=== PATIENT | female | born 1945 | race Hispanic/Latino ===

== ENCOUNTER 2022-08-08 23:00 | Inpatient (IN) | payer MEDICARE ==
[2022-08-08 23:42] LABS: #Basophils 0.1 thou/uL (0.0-0.2); #Eosinphils 0.2 thou/uL (0.0-0.7); #Monocytes 1.1 thou/uL (0.11-0.59); #Neutrophils 7.4 thou/uL (1.40-6.50); %Basophils 0.5 % (0.0-1.0); %Lymphocytes 25.6 % (21.0-51.0); %Neutrophils 62.8 % (42.0-75.0); Hemoglobin 12.7 g/dL (12.0-16.0); Mean Corpuscular HGB CONC 31.9 g/dL (32.0-36.0); Mean Corpuscular Hemoglobin 29.5 pg (27.0-31.0); Mean Corpuscular Volume 92.6 fl (78.0-98.0); Mean Platelet Volume 7.2 fL (7.4-10.4); Platelet Count 365 10x3/uL (130-400); RBC Distribution Width 15.6 % (11.5-14.5); Red Blood Cell (RBC) Count 4.29 mill/uL (4.20-5.40); White Blood Cell (WBC) Count 11.8 10x3/uL (4.8-10.8)
[2022-08-09] MEDS ORDERED: Ipratropium Bromide 2.5 ml Neb ONE (00:33)
[2022-08-09] MEDS ORDERED: Piperacillin/Tazobactam 3.375 GM VIAL ONE ×2 (02:02→07:23)
[2022-08-09] MEDS ORDERED: Magnesium 2 GM/50 ML BAG (IN WATER) ONE (02:02)
[2022-08-09 02:11] LABS: Bacteria/HPF 4+ HPF (None Seen); Bilirubin Negative (Negative); Blood, Urine 3+ (Negative); Clarity Extra Turbid (Clear); Glucose, Urine (Dipstick) Normal (Negative); Ketone, Urine Negative (Negative); Leukocyte 500 Leu/uL (Negative); Nitrite Negative (Negative); Protein, Urine (Dipstick) 20 mg/dL (Neg-Trace); RBC/HPF 21-50 HPF (0-3); Specific Gravity, Urine 1.008 (1.002-1.036); Squamous Epithelial 0-3 HPF (0-3); WBC/HPF Greater than 50 HPF (0-3); pH, Urine 6.5 (5.0-9.0)
[2022-08-09] MEDS ORDERED: Dextrose 5% in Water 1,000 ML IV PRN (03:08)
[2022-08-09] MEDS ORDERED: Dextrose 50% Abboject 50 ML SYRINGE SLOW IVP PRN (03:08)
[2022-08-09 03:20] LABS: CKMB 1.8 ng/mL (0-6.6)
[2022-08-09] MEDS ORDERED: Ondansetron ODT 4 MG TAB PER TUBE PRN (03:24)
[2022-08-09] MEDS ORDERED: Senokot S 8.6-50 MG TAB PER TUBE PRN (03:24)
[2022-08-09] MEDS ORDERED: Ipratropium/Albuterol 3 ML NEB NEB PRN (03:26)
[2022-08-09] MEDS ORDERED: Scopolamine 1.5 mg/72 hour Patch TD SCH (03:30)
[2022-08-09] MEDS ORDERED: Piperacillin/Tazobactam 3.375 GM in Sodium Chloride 0.9% 100 ML IVPB SCH (06:00)
[2022-08-09] MEDS ORDERED: Sodium Chloride 0.9% 100 ML ONE ×2 (07:23→08:47)
[2022-08-09] MEDS ORDERED: Cefepime 1 GM VIAL ONE (08:47)
[2022-08-09 08:50] LABS: SARS-CoV-2 NAA Rapid Test Not Detected (NotDetected)
[2022-08-09] MEDS ORDERED: Cefepime 1 GM in Sodium Chloride 0.9% 100 ML IVPB SCH (09:00)
[2022-08-09 09:22] LABS: ALT (SGPT) 12 U/L (8-55); AST (SGOT) 24 U/L (5-34); Albumin 2.9 g/dL (3.4-4.8); Alkaline Phosphatase 90 U/L (40-110); Anion Gap 12 mmol/L (10-20); BUN (Urea Nitrogen) 17 mg/dL (9.8-20.1); Bilirubin, Total 0.4 mg/dL (0.2-1.2); Calc. Creatinine Clearance 0 mL/min (70-130); Calcium 8.5 mg/dL (7.8-10.44); Carbon Dioxide 30 mmol/L (23-31); Chloride 92 mmol/L (98-107); Estimated GFR 91; Globulin 4.7 g/dL (2.4-3.5); Glucose 90 mg/dL (83-110); Potassium 4.5 mmol/L (3.5-5.1); Protein, Total 7.6 g/dL (5.8-8.1); Sodium 129 mmol/L (136-145)
[2022-08-09] MEDS: Losartan 25 MG TAB PER TUBE SCH (09:22)
[2022-08-09] MEDS: Hydrochlorothiazide 25 MG TAB PER TUBE SCH (09:52)
[2022-08-09] MEDS: Lansoprazole 15 MG/5 ML (BATCHED)UDCUP PER TUBE SCH (09:52)
[2022-08-09] MEDS: Ampicillin/Sulbactam 3 GM in Sodium Chloride 0.9% 100 ML IVPB SCH ×2 (15:34→22:40)
[2022-08-09] MEDS: Insulin Glargine 30 UNITS/0.3 ML VIAL SC SCH ×2 (22:17→22:18)
[2022-08-10] MEDS: Ampicillin/Sulbactam 3 GM in Sodium Chloride 0.9% 100 ML IVPB SCH ×2 (04:49→20:39)
[2022-08-10 05:09] LABS: #Eosinphils 0.2 thou/uL (0.0-0.7); #Lymphocytes 1.8 thou/uL (1.20-3.40); #Neutrophils 6.7 thou/uL (1.40-6.50); %Basophils 0.2 % (0.0-1.0); %Eosinophils 1.9 % (0.0-10.0); %Neutrophils 68.9 % (42.0-75.0); Hemoglobin 11.3 g/dL (12.0-16.0); Mean Corpuscular HGB CONC 30.9 g/dL (32.0-36.0); Mean Corpuscular Volume 93.8 fl (78.0-98.0); Platelet Count 393 10x3/uL (130-400); RBC Distribution Width 15.4 % (11.5-14.5); White Blood Cell (WBC) Count 9.7 10x3/uL (4.8-10.8)
[2022-08-10 05:22] LABS: Anion Gap 12 mmol/L (10-20); BUN (Urea Nitrogen) 13 mg/dL (9.8-20.1); Calc. Creatinine Clearance 79 mL/min (70-130); Calcium 8.4 mg/dL (7.8-10.44); Carbon Dioxide 32 mmol/L (23-31); Chloride 90 mmol/L (98-107); Estimated GFR 88; Glucose 267 mg/dL (83-110); Potassium 4.4 mmol/L (3.5-5.1); Sodium 130 mmol/L (136-145)
[2022-08-10] MEDS ORDERED: Ventilator Sedation Protocol 1 EACH FS PRN (08:53)
[2022-08-10] MEDS ORDERED: Electrolyte Replacement Protocol 1 EACH FS PRN (08:53)
[2022-08-10] MEDS ORDERED: Propofol 1,000 MG/100 ML VIAL IV ONE (08:53)
[2022-08-10] MEDS ORDERED: Fentanyl BOLUS 250 ML IVPB PRN (09:00)
[2022-08-10] MEDS ORDERED: Propofol 1,000 MG/100 ML VIAL IV PRN (09:00)
[2022-08-10] MEDS ORDERED: Lorazepam 2 MG/ML VIAL SLOW IVP PRN (09:00)
[2022-08-10] MEDS ORDERED: Morphine 4 MG/ML VIAL SLOW IVP PRN (09:00)
[2022-08-10] MEDS ORDERED: DISCONTINUE PREVIOUS NARCOTIC PAIN MEDICATIONS AND BENZODIAZEPINES FS SCH (09:00)
[2022-08-10] MEDS ORDERED: Propofol BOLUS 1,000 MG/100 ML VIAL IV PRN (09:00)
[2022-08-10] MEDS ORDERED: Fentanyl CADD 100 ML IV SCH (09:00)
[2022-08-10] MEDS ORDERED: Fentanyl CADD 100 ML ONE (10:16)
[2022-08-10] MEDS ORDERED: Meropenem 1 GM in Sodium Chloride 0.9% 100 ML IVPB SCH (13:00)
[2022-08-10] MEDS: Losartan 25 MG TAB PER TUBE SCH (13:07)
[2022-08-10] MEDS: Hydrochlorothiazide 25 MG TAB PER TUBE SCH (13:07)
[2022-08-10] MEDS: HumaLOG 300 UNITS/3 ML VIAL SC PRN (14:13)
[2022-08-10] MEDS: Ipratropium/Albuterol 3 ML NEB NEB SCH ×2 (14:33→18:21)
[2022-08-10 15:45] LABS: Actual Bicarbonate (HCO3a) 33.2 mEq/L (22-28); Base Excess (BEa) 7.7 mEq/L (-2.0 to +3.0); Calcium, Ionized (arterial) 1.11 mmol/L (1.12-1.30); Carboxyhemoglobin (COHb) 0.2 gm% (0.0-3.0); Hemoglobin (Hb) 11.4 g/dL (12.0-16.0); O2 Tension (PaO2), arterial 61.8 mmHg (> 70.0); Potassium - ABG Lab 4.02 mmol/L (3.70-5.30); pH, Arterial 7.43 (7.35-7.45)
[2022-08-10 15:46] LABS: Puncture Site RRA
[2022-08-10] MEDS: Lansoprazole 15 MG/5 ML (BATCHED)UDCUP PER TUBE SCH (20:39)
[2022-08-10] MEDS: Insulin Glargine 30 UNITS/0.3 ML VIAL SC SCH (20:42)
[2022-08-10] MEDS: Meropenem 1 GM in Sodium Chloride 0.9% 100 ML IVPB SCH (20:43)
[2022-08-10] MEDS ORDERED: Sodium Chloride 0.45% 1,000 ML IV SCH (22:45)
[2022-08-11] MEDS: Ipratropium/Albuterol 3 ML NEB NEB SCH ×4 (00:02→18:20)
[2022-08-11 04:11] LABS: #Eosinphils 0.2 thou/uL (0.0-0.7); #Monocytes 0.7 thou/uL (0.11-0.59); #Neutrophils 5.9 thou/uL (1.40-6.50); %Eosinophils 2.1 % (0.0-10.0); %Lymphocytes 22.8 % (21.0-51.0); %Monocytes 8.2 % (0.0-10.0); Hemoglobin 10.2 g/dL (12.0-16.0); Mean Corpuscular HGB CONC 31.5 g/dL (32.0-36.0); Mean Corpuscular Hemoglobin 29.5 pg (27.0-31.0); Mean Corpuscular Volume 93.5 fl (78.0-98.0); Mean Platelet Volume 6.9 fL (7.4-10.4); Platelet Count 364 10x3/uL (130-400); RBC Distribution Width 15.4 % (11.5-14.5); Red Blood Cell (RBC) Count 3.45 mill/uL (4.20-5.40); White Blood Cell (WBC) Count 8.9 10x3/uL (4.8-10.8)
[2022-08-11 04:33] LABS: Anion Gap 12 mmol/L (10-20); BUN (Urea Nitrogen) 21 mg/dL (9.8-20.1); Calc. Creatinine Clearance 70 mL/min (70-130); Calcium 8.6 mg/dL (7.8-10.44); Carbon Dioxide 31 mmol/L (23-31); Chloride 91 mmol/L (98-107); Estimated GFR 75; Glucose 216 mg/dL (83-110); Potassium 4.5 mmol/L (3.5-5.1); Sodium 129 mmol/L (136-145)
[2022-08-11] MEDS: Meropenem 1 GM in Sodium Chloride 0.9% 100 ML IVPB SCH ×3 (04:59→20:18)
[2022-08-11] MEDS: HumaLOG 300 UNITS/3 ML VIAL SC PRN ×4 (05:02→20:57)
[2022-08-11] MEDS ORDERED: DC Sedation Protocol FS ONE (08:45)
[2022-08-11] MEDS: Pantoprazole 40 MG VIAL IVP SCH (08:46)
[2022-08-11] MEDS: Losartan 25 MG TAB PER TUBE SCH (08:46)
[2022-08-11] MEDS: Hydrochlorothiazide 25 MG TAB PER TUBE SCH (08:46)
[2022-08-11] MEDS: Metoprolol Tartrate 25 MG TAB PER TUBE SCH ×2 (09:25→20:18)
[2022-08-11] MEDS: Acetaminophen 325 MG TAB PER TUBE PRN (16:16)
[2022-08-11] MEDS: Insulin Glargine 30 UNITS/0.3 ML VIAL SC SCH (20:57)
[2022-08-12] MEDS: Ipratropium/Albuterol 3 ML NEB NEB SCH ×6 (00:17→22:30)
[2022-08-12] MEDS: Acetaminophen 325 MG TAB PER TUBE PRN ×2 (00:20→08:28)
[2022-08-12 04:07] LABS: Anion Gap 14 mmol/L (10-20); BUN (Urea Nitrogen) 18 mg/dL (9.8-20.1); Calc. Creatinine Clearance 89 mL/min (70-130); Calcium 8.9 mg/dL (7.8-10.44); Carbon Dioxide 30 mmol/L (23-31); Chloride 90 mmol/L (98-107); Estimated GFR 92; Glucose 161 mg/dL (83-110); Potassium 4.5 mmol/L (3.5-5.1); Sodium 129 mmol/L (136-145)
[2022-08-12] MEDS: Meropenem 1 GM in Sodium Chloride 0.9% 100 ML IVPB SCH ×3 (04:08→21:21)
[2022-08-12] MEDS: HumaLOG 300 UNITS/3 ML VIAL SC PRN ×2 (04:13→10:29)
[2022-08-12] MEDS: Pantoprazole 40 MG VIAL IVP SCH (08:28)
[2022-08-12] MEDS: Losartan 25 MG TAB PER TUBE SCH (08:29)
[2022-08-12] MEDS: Hydrochlorothiazide 25 MG TAB PER TUBE SCH (08:29)
[2022-08-12] MEDS: Metoprolol Tartrate 25 MG TAB PER TUBE SCH ×2 (08:29→21:21)
[2022-08-12] MEDS: Insulin Glargine 30 UNITS/0.3 ML VIAL SC SCH (21:21)
[2022-08-13] MEDS: Ipratropium/Albuterol 3 ML NEB NEB SCH ×6 (01:55→22:04)
[2022-08-13] MEDS: Meropenem 1 GM in Sodium Chloride 0.9% 100 ML IVPB SCH ×3 (04:00→20:07)
[2022-08-13 07:26] LABS: BUN (Urea Nitrogen) 14 mg/dL (9.8-20.1); Calc. Creatinine Clearance 100 mL/min (70-130); Carbon Dioxide 33 mmol/L (23-31); Chloride 89 mmol/L (98-107); Estimated GFR 95; Glucose 124 mg/dL (83-110); Potassium 4.6 mmol/L (3.5-5.1); Sodium 131 mmol/L (136-145)
[2022-08-13] MEDS: Losartan 25 MG TAB PER TUBE SCH (08:33)
[2022-08-13] MEDS: Hydrochlorothiazide 25 MG TAB PER TUBE SCH (08:33)
[2022-08-13] MEDS: Metoprolol Tartrate 25 MG TAB PER TUBE SCH ×2 (08:33→20:07)
[2022-08-13] MEDS: Pantoprazole 40 MG VIAL IVP SCH (08:33)
[2022-08-13] MEDS: HumaLOG 300 UNITS/3 ML VIAL SC PRN (10:47)
[2022-08-13 13:17] LABS: Anion Gap 14 mmol/L (10-20)
[2022-08-13] MEDS: guaiFENesin/DM ER PO SCH (20:07)
[2022-08-13] MEDS: Insulin Glargine 30 UNITS/0.3 ML VIAL SC SCH (21:16)
[2022-08-14] MEDS: Ipratropium/Albuterol 3 ML NEB NEB SCH ×6 (02:10→22:24)
[2022-08-14] MEDS: Meropenem 1 GM in Sodium Chloride 0.9% 100 ML IVPB SCH ×3 (04:05→21:14)
[2022-08-14 07:10] LABS: #Eosinphils 0.2 thou/uL (0.0-0.7); #Lymphocytes 2.5 thou/uL (1.20-3.40); #Monocytes 0.7 thou/uL (0.11-0.59); #Neutrophils 5.3 thou/uL (1.40-6.50); %Basophils 0.5 % (0.0-1.0); %Lymphocytes 28.9 % (21.0-51.0); %Monocytes 8.3 % (0.0-10.0); %Neutrophils 60.3 % (42.0-75.0); Hemoglobin 11.2 g/dL (12.0-16.0); Mean Corpuscular HGB CONC 31.3 g/dL (32.0-36.0); Mean Corpuscular Hemoglobin 29.6 pg (27.0-31.0); Mean Corpuscular Volume 94.4 fl (78.0-98.0); Mean Platelet Volume 6.1 fL (7.4-10.4); Platelet Count 442 10x3/uL (130-400); Red Blood Cell (RBC) Count 3.78 mill/uL (4.20-5.40); White Blood Cell (WBC) Count 8.8 10x3/uL (4.8-10.8)
[2022-08-14 07:30] LABS: BUN (Urea Nitrogen) 15 mg/dL (9.8-20.1); Calc. Creatinine Clearance 111 mL/min (70-130); Calcium 9.4 mg/dL (7.8-10.44); Estimated GFR 96; Glucose 75 mg/dL (83-110)
[2022-08-14 07:39] LABS: Anion Gap 15 mmol/L (10-20); Carbon Dioxide 38 mmol/L (23-31); Chloride 88 mmol/L (98-107); Potassium 4.4 mmol/L (3.5-5.1); Sodium 137 mmol/L (136-145)
[2022-08-14] MEDS ORDERED: Ipratropium/Albuterol 3 ML NEB ONE (08:38)
[2022-08-14] MEDS: methylPREDNISolone Sod Succ 40 MG VIAL IVP SCH (08:52)
[2022-08-14] MEDS: Losartan 25 MG TAB PER TUBE SCH (08:52)
[2022-08-14] MEDS: Metoprolol Tartrate 25 MG TAB PER TUBE SCH ×2 (08:52→21:14)
[2022-08-14] MEDS: Pantoprazole 40 MG VIAL IVP SCH (08:52)
[2022-08-14] MEDS: Hydrochlorothiazide 25 MG TAB PER TUBE SCH (08:52)
[2022-08-14] MEDS: guaiFENesin/DM ER PO SCH (08:53)
[2022-08-14] MEDS: HumaLOG 300 UNITS/3 ML VIAL SC PRN ×3 (10:48→21:30)
[2022-08-14] MEDS ORDERED: QUEtiapine 25 MG TAB PO SCH (11:00)
[2022-08-14] MEDS: QUEtiapine 25 MG TAB PO SCH ×2 (14:38→21:14)
[2022-08-14] MEDS: Guaifenesin DM 100-10/5 ML UDCUP PER TUBE SCH (21:14)
[2022-08-14] MEDS: Insulin Glargine 30 UNITS/0.3 ML VIAL SC SCH (21:15)
[2022-08-15] MEDS: Ipratropium/Albuterol 3 ML NEB NEB SCH ×6 (03:27→21:53)
[2022-08-15] MEDS: HumaLOG 300 UNITS/3 ML VIAL SC PRN ×4 (04:21→21:01)
[2022-08-15] MEDS: Meropenem 1 GM in Sodium Chloride 0.9% 100 ML IVPB SCH ×2 (04:21→13:57)
[2022-08-15] MEDS: Losartan 25 MG TAB PER TUBE SCH (09:33)
[2022-08-15] MEDS: Hydrochlorothiazide 25 MG TAB PER TUBE SCH (09:33)
[2022-08-15] MEDS: Guaifenesin DM 100-10/5 ML UDCUP PER TUBE SCH ×2 (09:33→20:56)
[2022-08-15] MEDS: methylPREDNISolone Sod Succ 40 MG VIAL IVP SCH (09:34)
[2022-08-15] MEDS: QUEtiapine 25 MG TAB PO SCH ×3 (09:34→20:58)
[2022-08-15] MEDS: Metoprolol Tartrate 25 MG TAB PER TUBE SCH ×2 (09:34→20:57)
[2022-08-15] MEDS: Pantoprazole 40 MG VIAL IVP SCH (09:35)
[2022-08-15] MEDS ORDERED: Scopolamine 1.5 mg/72 hour Patch TD SCH (15:00)
[2022-08-15] MEDS ORDERED: Nitroglycerin 50 MG/250 ML BOT 0 ML ONE (20:20)
[2022-08-15] MEDS: Insulin Glargine 30 UNITS/0.3 ML VIAL SC SCH (21:00)
[2022-08-16] MEDS: Ipratropium/Albuterol 3 ML NEB NEB SCH ×6 (01:49→22:05)
[2022-08-16] MEDS ORDERED: Polyethylene Glycol 3350 17 GM Packet PO PRN (08:49)
[2022-08-16] MEDS: Metoprolol Tartrate 25 MG TAB PER TUBE SCH ×2 (08:55→21:02)
[2022-08-16] MEDS: QUEtiapine 25 MG TAB PO SCH ×3 (08:55→21:01)
[2022-08-16] MEDS: Hydrochlorothiazide 25 MG TAB PER TUBE SCH (08:55)
[2022-08-16] MEDS: Pantoprazole 40 MG VIAL IVP SCH (08:55)
[2022-08-16] MEDS: Losartan 25 MG TAB PER TUBE SCH (08:56)
[2022-08-16] MEDS: methylPREDNISolone Sod Succ 40 MG VIAL IVP SCH (08:57)
[2022-08-16] MEDS: Guaifenesin DM 100-10/5 ML UDCUP PER TUBE SCH ×2 (09:11→21:00)
[2022-08-16 09:25] LABS: #Eosinphils 0.1 thou/uL (0.0-0.7); #Lymphocytes 2.7 thou/uL (1.20-3.40); #Monocytes 0.7 thou/uL (0.11-0.59); #Neutrophils 3.3 thou/uL (1.40-6.50); %Basophils 0.5 % (0.0-1.0); %Eosinophils 1.1 % (0.0-10.0); %Lymphocytes 39.3 % (21.0-51.0); %Monocytes 10.8 % (0.0-10.0); %Neutrophils 48.3 % (42.0-75.0); Hemoglobin 11.2 g/dL (12.0-16.0); Mean Corpuscular HGB CONC 30.3 g/dL (32.0-36.0); Mean Corpuscular Hemoglobin 28.8 pg (27.0-31.0); Mean Corpuscular Volume 94.8 fl (78.0-98.0); Platelet Count 526 10x3/uL (130-400); RBC Distribution Width 15.1 % (11.5-14.5); Red Blood Cell (RBC) Count 3.91 mill/uL (4.20-5.40); White Blood Cell (WBC) Count 6.9 10x3/uL (4.8-10.8)
[2022-08-16 09:48] LABS: BUN (Urea Nitrogen) 32 mg/dL (9.8-20.1); Calc. Creatinine Clearance 94 mL/min (70-130); Calcium 9.7 mg/dL (7.8-10.44); Estimated GFR 93; Glucose 119 mg/dL (83-110)
[2022-08-16 09:57] LABS: Anion Gap 15 mmol/L (10-20); Carbon Dioxide 36 mmol/L (23-31); Chloride 90 mmol/L (98-107); Potassium 4.6 mmol/L (3.5-5.1); Sodium 136 mmol/L (136-145)
[2022-08-16 11:58] VITALS: BMI 32.7
[2022-08-16] MEDS: HumaLOG 300 UNITS/3 ML VIAL SC PRN (17:22)
[2022-08-16] MEDS: Insulin Glargine 30 UNITS/0.3 ML VIAL SC SCH (21:02)
[2022-08-17] MEDS: Ipratropium/Albuterol 3 ML NEB NEB SCH ×6 (02:42→22:20)
[2022-08-17 03:32] LABS: #Basophils 0.1 thou/uL (0.0-0.2); #Eosinphils 0.1 thou/uL (0.0-0.7); #Lymphocytes 2.8 thou/uL (1.20-3.40); #Monocytes 0.8 thou/uL (0.11-0.59); #Neutrophils 3.7 thou/uL (1.40-6.50); %Eosinophils 1.1 % (0.0-10.0); %Lymphocytes 37.9 % (21.0-51.0); %Monocytes 10.6 % (0.0-10.0); %Neutrophils 49.4 % (42.0-75.0); Hemoglobin 11.2 g/dL (12.0-16.0); Mean Corpuscular Hemoglobin 29.1 pg (27.0-31.0); Mean Corpuscular Volume 93.8 fl (78.0-98.0); Mean Platelet Volume 6.4 fL (7.4-10.4); Platelet Count 494 10x3/uL (130-400); Red Blood Cell (RBC) Count 3.85 mill/uL (4.20-5.40); White Blood Cell (WBC) Count 7.4 10x3/uL (4.8-10.8)
[2022-08-17 03:46] LABS: BUN (Urea Nitrogen) 32 mg/dL (9.8-20.1); CRP (Inflammatory) 2.51 mg/dL (= or < 0.5); Calc. Creatinine Clearance 88 mL/min (70-130); Calcium 9.9 mg/dL (7.8-10.44); Estimated GFR 92; Glucose 120 mg/dL (83-110)
[2022-08-17 03:56] LABS: Anion Gap 14 mmol/L (10-20); Carbon Dioxide 39 mmol/L (23-31); Chloride 89 mmol/L (98-107); Potassium 4.5 mmol/L (3.5-5.1); Sodium 137 mmol/L (136-145)
[2022-08-17] MEDS: Guaifenesin DM 100-10/5 ML UDCUP PER TUBE SCH ×2 (08:12→20:14)
[2022-08-17] MEDS: Losartan 25 MG TAB PER TUBE SCH (08:12)
[2022-08-17] MEDS: Hydrochlorothiazide 25 MG TAB PER TUBE SCH (08:12)
[2022-08-17] MEDS: Pantoprazole 40 MG VIAL IVP SCH (08:13)
[2022-08-17] MEDS: Metoprolol Tartrate 25 MG TAB PER TUBE SCH ×2 (08:13→20:14)
[2022-08-17] MEDS: QUEtiapine 25 MG TAB PO SCH ×2 (08:13→20:14)
[2022-08-17] MEDS: methylPREDNISolone Sod Succ 40 MG VIAL IVP SCH (08:13)
[2022-08-17] MEDS: Insulin Glargine 30 UNITS/0.3 ML VIAL SC SCH (20:14)
[2022-08-17] MEDS: Acetaminophen 325 MG TAB PER TUBE PRN (21:23)
[2022-08-18] MEDS: Ipratropium/Albuterol 3 ML NEB NEB SCH ×3 (02:46→10:34)
[2022-08-18 03:58] LABS: #Eosinphils 0.2 thou/uL (0.0-0.7); #Lymphocytes 3.8 thou/uL (1.20-3.40); #Neutrophils 3.6 thou/uL (1.40-6.50); %Basophils 0.5 % (0.0-1.0); %Eosinophils 1.8 % (0.0-10.0); %Lymphocytes 44.4 % (21.0-51.0); %Monocytes 11.4 % (0.0-10.0); %Neutrophils 41.8 % (42.0-75.0); Hemoglobin 12.1 g/dL (12.0-16.0); Mean Corpuscular Volume 93.5 fl (78.0-98.0); Mean Platelet Volume 6.1 fL (7.4-10.4); Platelet Count 579 10x3/uL (130-400); RBC Distribution Width 15.1 % (11.5-14.5); Red Blood Cell (RBC) Count 4.15 mill/uL (4.20-5.40); White Blood Cell (WBC) Count 8.6 10x3/uL (4.8-10.8)
[2022-08-18 04:16] LABS: Phosphorus 4.4 mg/dL (2.3-4.7)
[2022-08-18 04:18] LABS: ALT (SGPT) 14 U/L (8-55); AST (SGOT) 20 U/L (5-34); Albumin 2.9 g/dL (3.4-4.8); Alkaline Phosphatase 64 U/L (40-110); Anion Gap 13 mmol/L (10-20); BUN (Urea Nitrogen) 35 mg/dL (9.8-20.1); Bilirubin, Total 0.5 mg/dL (0.2-1.2); Calc. Creatinine Clearance 77 mL/min (70-130); Calcium 9.6 mg/dL (7.8-10.44); Carbon Dioxide 37 mmol/L (23-31); Chloride 90 mmol/L (98-107); Estimated GFR 87; Globulin 4.6 g/dL (2.4-3.5); Glucose 118 mg/dL (83-110); Magnesium 1.8 mg/dL (1.6-2.6); Potassium 4.4 mmol/L (3.5-5.1); Protein, Total 7.5 g/dL (5.8-8.1); Sodium 136 mmol/L (136-145)
[2022-08-18 07:27] VITALS: BP 101/47
[2022-08-18 07:41] VITALS: TEMP 98.9
[2022-08-18] MEDS ORDERED: Magnesium 2 GM/50 ML(in water) 2 GM in Premix Bag 1 BAG IVPB SCH (08:00)
[2022-08-18] MEDS: Guaifenesin DM 100-10/5 ML UDCUP PER TUBE SCH (08:02)
[2022-08-18] MEDS: Pantoprazole 40 MG VIAL IVP SCH (08:03)
[2022-08-18] MEDS: Metoprolol Tartrate 25 MG TAB PER TUBE SCH (08:04)
[2022-08-18] MEDS: Losartan 25 MG TAB PER TUBE SCH (08:04)
[2022-08-18] MEDS: HumaLOG 300 UNITS/3 ML VIAL SC PRN (12:04)
== END 2022-08-18 13:05 | DRG 870 ==
LOC: ERS 23:00 → ERHOLD 08-09 01:56 → 2NO 08-09 15:41 → CCU 08-10 08:44
PROVIDERS: ADMIT Student in an Organized Health Care Education/Training Program; ATTEND Hospitalist
PROC: 3E03329 Introduction of Other Anti-infective into Peripheral Vein, Percutaneous Approach (ICD-10-PCS; 2022-08-09)
PROC: 4A133R1 Monitoring of Arterial Saturation, Peripheral, Percutaneous Approach (ICD-10-PCS; 2022-08-09)
PROC: 5A1955Z Respiratory Ventilation, Greater than 96 Consecutive Hours (ICD-10-PCS; principal; 2022-08-10)
PROC: 0BC18ZZ Extirpation of Matter from Trachea, Via Natural or Artificial Opening Endoscopic (ICD-10-PCS; 2022-08-10)
DX: A41.52 Sepsis due to Pseudomonas (principal); J96.21 Acute and chronic respiratory failure with hypoxia; J15.1 Pneumonia due to Pseudomonas; J96.22 Acute and chronic respiratory failure with hypercapnia; J95.03 Malfunction of tracheostomy stoma; T17.490A Other foreign object in trachea causing asphyxiation, initial encounter; N30.00 Acute cystitis without hematuria; E87.1 Hypo-osmolality and hyponatremia; E66.2 Morbid (severe) obesity with alveolar hypoventilation; R65.20 Severe sepsis without septic shock; E78.5 Hyperlipidemia, unspecified; Z20.822 Contact with and (suspected) exposure to COVID-19; I10 Essential (primary) hypertension; B95.2 Enterococcus as the cause of diseases classified elsewhere; B96.1 Klebsiella pneumoniae [K. pneumoniae] as the cause of diseases classified elsewhere; E11.65 Type 2 diabetes mellitus with hyperglycemia; Y83.8 Other surgical procedures as the cause of abnormal reaction of the patient, or of later complication, without mention of misadventure at the time of the procedure; J98.6 Disorders of diaphragm; Z79.899 Other long term (current) drug therapy; Z79.4 Long term (current) use of insulin; Z68.31 Body mass index [BMI] 31.0-31.9, adult
CPT/HCPCS: 36415; 36416; 36600; 71045; 80048; 80053; 81003; 81015; 82553; 82805; 83605; 83690; 83735; 83880; 84100; 84484; 85025; 86140; 87040; 87070; 87077; 87086; 87186; 87205; 87811; 93005; 93306; 94002; 94003; 94640; 96365; 96368; C9113; J0295; J0692; J1650; J1815; J2185; J2543; J2704; J2920; J3010; J3475; J3490; J7611; J7620

== ENCOUNTER 2022-11-03 11:28 | Emergency (ER) | payer MEDICARE ==
[2022-11-03 12:54] LABS: #Basophils 0.1 thou/uL (0.0-0.2); #Eosinphils 0.1 thou/uL (0.0-0.7); #Lymphocytes 1.6 thou/uL (1.20-3.40); #Monocytes 0.8 thou/uL (0.11-0.59); #Neutrophils 6.7 thou/uL (1.40-6.50); %Basophils 0.8 % (0.0-1.0); %Lymphocytes 17.5 % (21.0-51.0); %Monocytes 8.4 % (0.0-10.0); %Neutrophils 72.3 % (42.0-75.0); Hemoglobin 11.7 g/dL (12.0-16.0); Mean Corpuscular HGB CONC 32.7 g/dL (32.0-36.0); Mean Corpuscular Hemoglobin 30.3 pg (27.0-31.0); Mean Corpuscular Volume 92.7 fl (78.0-98.0); Mean Platelet Volume 7.2 fL (7.4-10.4); Platelet Count 414 10x3/uL (130-400); RBC Distribution Width 14.6 % (11.5-14.5); Red Blood Cell (RBC) Count 3.87 mill/uL (4.20-5.40); White Blood Cell (WBC) Count 9.2 10x3/uL (4.8-10.8)
[2022-11-03 13:17] LABS: ALT (SGPT) 11 U/L (8-55); AST (SGOT) 17 U/L (5-34); Albumin 3.8 g/dL (3.4-4.8); Alkaline Phosphatase 57 U/L (40-110); Anion Gap 17 mmol/L (10-20); BUN (Urea Nitrogen) 31 mg/dL (9.8-20.1); Bilirubin, Total 0.3 mg/dL (0.2-1.2); Calc. Creatinine Clearance 0 mL/min (70-130); Calcium 9.8 mg/dL (7.8-10.44); Carbon Dioxide 25 mmol/L (23-31); Chloride 98 mmol/L (98-107); Estimated GFR 72; Globulin 4.3 g/dL (2.4-3.5); Glucose 237 mg/dL (83-110); Potassium 4.5 mmol/L (3.5-5.1); Protein, Total 8.1 g/dL (5.8-8.1); Sodium 135 mmol/L (136-145)
== END 2022-11-03 15:16 | disposition home or self-care (01) ==
LOC: ERS 11:28
DX: K94.23 Gastrostomy malfunction (principal); L03.311 Cellulitis of abdominal wall; E11.9 Type 2 diabetes mellitus without complications; E78.00 Pure hypercholesterolemia, unspecified; I10 Essential (primary) hypertension; Z79.899 Other long term (current) drug therapy; Z79.84 Long term (current) use of oral hypoglycemic drugs; Z79.4 Long term (current) use of insulin
CPT/HCPCS: 36415; 74018; 80053; 83605; 85025; 87040

== ENCOUNTER 2023-02-15 10:56 | Outpatient (CLI) | payer MEDICARE | END 2023-02-15 10:57 | disposition home or self-care (01) | LOC: RAD 10:56 | PROVIDERS: ATTEND Internal Medicine Gastroenterology | DX: R13.10 Dysphagia, unspecified (principal); R63.30 Feeding difficulties, unspecified; J96.90 Respiratory failure, unspecified, unspecified whether with hypoxia or hypercapnia; Z93.1 Gastrostomy status | CPT/HCPCS: 74230 ==

== ENCOUNTER 2023-06-22 08:40 | Emergency (ER) | payer MEDICARE, SELFPAY ==
[2023-06-22 09:28] LABS: #Basophils 0.1 thou/uL (0.0-0.2); #Eosinphils 0.2 thou/uL (0.0-0.7); #Monocytes 1.1 thou/uL (0.11-0.59); #Neutrophils 6.7 thou/uL (1.40-6.50); %Basophils 0.6 % (0.0-1.0); %Eosinophils 1.6 % (0.0-10.0); %Monocytes 10.5 % (0.0-10.0); %Neutrophils 64.9 % (42.0-75.0); Hemoglobin 11.9 g/dL (12.0-16.0); Mean Corpuscular HGB CONC 30.5 g/dL (32.0-36.0); Mean Corpuscular Hemoglobin 27.4 pg (27.0-31.0); Mean Corpuscular Volume 89.9 fl (78.0-98.0); Mean Platelet Volume 9.6 fL (7.4-10.4); Platelet Count 325 10x3/uL (130-400); RBC Distribution Width 14.6 % (11.5-14.5); Red Blood Cell (RBC) Count 4.34 mill/uL (4.20-5.40); White Blood Cell (WBC) Count 10.3 10x3/uL (4.8-10.8)
[2023-06-22 09:48] LABS: ALT (SGPT) 10 U/L (8-55); AST (SGOT) 13 U/L (5-34); Albumin 3.8 g/dL (3.4-4.8); Alkaline Phosphatase 56 U/L (40-110); Anion Gap 10 mmol/L (10-20); BUN (Urea Nitrogen) 16 mg/dL (9.8-20.1); Bilirubin, Total 0.5 mg/dL (0.2-1.2); Calc. Creatinine Clearance 0 mL/min (70-130); Calcium 9.2 mg/dL (7.8-10.44); Carbon Dioxide 31 mmol/L (23-31); Chloride 101 mmol/L (98-107); Estimated GFR 78; Globulin 3.9 g/dL (2.4-3.5); Glucose 180 mg/dL (83-110); Potassium 4.3 mmol/L (3.5-5.1); Protein, Total 7.7 g/dL (5.8-8.1); Sodium 138 mmol/L (136-145)
[2023-06-22 09:52] LABS: Troponin I 0.023 ng/mL (< 0.028)
[2023-06-22 10:07] LABS: SARS-CoV-2 NAA Rapid Test Not Detected (NotDetected)
[2023-06-22] MEDS ORDERED: Iopamidol-370 76% 500 ML MDV (1 ML CHARGE) ONE (14:06)
== END 2023-06-22 12:00 | disposition home or self-care (01) ==
LOC: ERS 08:40
DX: J20.9 Acute bronchitis, unspecified (principal); R91.1 Solitary pulmonary nodule; E11.9 Type 2 diabetes mellitus without complications; I10 Essential (primary) hypertension; E78.00 Pure hypercholesterolemia, unspecified; Z79.4 Long term (current) use of insulin; Z79.899 Other long term (current) drug therapy
CPT/HCPCS: 71045; 71275; 80053; 84484; 85025; 85379; 93005; 94760; Q9967

== ENCOUNTER 2024-03-28 09:41 | Inpatient (IN) | payer MEDICARE ==
[2024-03-28 11:59] VITALS: BMI 31.6
[2024-03-28] MEDS ORDERED: Dextrose 50% Abboject 50 ML SYRINGE SLOW IVP PRN (11:59)
[2024-03-28] MEDS ORDERED: Ondansetron PF 4 MG/2 ML Vial IVP PRN (11:59)
[2024-03-28] MEDS ORDERED: Guaifenesin DM 100-10/5 ML UDCUP PO PRN (11:59)
[2024-03-28] MEDS ORDERED: Acetaminophen 325 MG TAB PO PRN (11:59)
[2024-03-28] MEDS ORDERED: Dextrose 5% in Water 1,000 ML IV PRN (11:59)
[2024-03-28] MEDS ORDERED: Acetaminophen 650 MG Suppository PR PRN (11:59)
[2024-03-28] MEDS ORDERED: Glucagon 1 MG/ML KIT IM PRN (11:59)
[2024-03-28] MEDS ORDERED: Acetaminophen/Codeine 30-300mg Tablet PO PRN (12:03)
[2024-03-28 12:43] LABS: Actual Bicarbonate (HCO3a) 32.9 mEq/L (22-28); Base Excess (BEa) 5.6 mEq/L (-2.0 to +3.0); Calcium, Ionized (arterial) 1.16 mmol/L (1.12-1.30); Carboxyhemoglobin (COHb) 0.9 gm% (0.0-3.0); Hematocrit-ABG 39 % (36.0-47.0); Hemoglobin (Hb) 13.3 g/dL (12.0-16.0); O2 Tension (PaO2), arterial 69.1 mmHg (> 70.0); Potassium - ABG Lab 4.04 mmol/L (3.70-5.30); pH, Arterial 7.353 (7.35-7.45)
[2024-03-28 12:48] LABS: ALV-art Gradient 140.475 mmHg (0-20); Puncture Site Right Radial artery
[2024-03-28] MEDS: methylPREDNISolone Sod Succ 40 MG VIAL IVP SCH (14:07)
[2024-03-28] MEDS: Cefepime 2 GM in Sodium Chloride 0.9% 100 ML IVPB SCH (14:44)
[2024-03-28] MEDS: Ipratropium/Albuterol 3 ML NEB NEB SCH (14:56)
[2024-03-28] MEDS: Simvastatin 10 MG TAB PO SCH (19:56)
[2024-03-28] MEDS: Insulin Glargine 30 UNITS/0.3 ML VIAL SC SCH (23:26)
[2024-03-29] MEDS: Cefepime 1 GM in Sodium Chloride 0.9% 100 ML IVPB SCH (03:46)
[2024-03-29 03:56] LABS: #Basophils Less than 0.03 10x3/uL (0.0-0.2); #Eosinphils Less than 0.03 10x3/uL (0.0-0.7); %Basophils 0.2 % (0.0-1.0); %Lymphocytes 10.7 % (21.0-51.0); %Monocytes 2.2 % (0.0-10.0); Hematocrit 43.7 % (36.0-47.0); Mean Corpuscular HGB CONC 29.7 g/dL (32.0-36.0); Mean Corpuscular Hemoglobin 26.2 pg (27.0-31.0); Mean Corpuscular Volume 88.1 fL (78.0-98.0); Mean Platelet Volume 9.5 fL (7.4-10.4); Platelet Count 312 10x3/uL (130-400); RBC Distribution Width 17.9 % (11.5-14.5); Red Blood Cell (RBC) Count 4.96 mill/uL (4.20-5.40)
[2024-03-29 04:15] LABS: ALT (SGPT) 24 U/L (8-55); AST (SGOT) 15 U/L (5-34); Albumin 2.9 g/dL (3.4-4.8); Alkaline Phosphatase 99 U/L (40-110); Anion Gap 15 mmol/L (10-20); BUN (Urea Nitrogen) 35 mg/dL (9.8-20.1); Bilirubin, Total 0.6 mg/dL (0.2-1.2); Calc. Creatinine Clearance 62 mL/min (70-130); Calcium 9.1 mg/dL (7.8-10.44); Carbon Dioxide 29 mmol/L (23-31); Chloride 105 mmol/L (98-107); Estimated GFR 68; Glucose 148 mg/dL (83-110); Potassium 4.5 mmol/L (3.5-5.1); Protein, Total 6.9 g/dL (5.8-8.1); Sodium 144 mmol/L (136-145)
[2024-03-29] MEDS: Enoxaparin 40 MG (0.4 mL) SYRINGE SC SCH (09:09)
[2024-03-29] MEDS: Insulin Lispro 100 UNIT/ML 10 ML VIAL SC PRN (09:19)
[2024-03-29] MEDS: Insulin Glargine 30 UNITS/0.3 ML VIAL SC SCH (11:15)
[2024-03-29] MEDS: Escitalopram Oxalate 10 mg Tablet PO SCH (11:15)
[2024-03-30 06:28] LABS: #Basophils 0.03 10x3/uL (0.0-0.2); %Basophils 0.2 % (0.0-1.0); %Eosinophils 0.6 % (0.0-10.0); %Lymphocytes 12.3 % (21.0-51.0); %Monocytes 13.2 % (0.0-10.0); %Neutrophils 72.8 % (42.0-75.0); Hematocrit 44.1 % (36.0-47.0); Hemoglobin 13.2 g/dL (12.0-16.0); Mean Corpuscular HGB CONC 29.9 g/dL (32.0-36.0); Mean Corpuscular Hemoglobin 26.6 pg (27.0-31.0); Mean Corpuscular Volume 88.7 fL (78.0-98.0); Mean Platelet Volume 9.3 fL (7.4-10.4); Platelet Count 383 10x3/uL (130-400); RBC Distribution Width 18.2 % (11.5-14.5); Red Blood Cell (RBC) Count 4.97 mill/uL (4.20-5.40)
[2024-03-30 06:54] LABS: Anion Gap 15 mmol/L (10-20); BUN (Urea Nitrogen) 35 mg/dL (9.8-20.1); Calc. Creatinine Clearance 65 mL/min (70-130); Calcium 8.9 mg/dL (7.8-10.44); Carbon Dioxide 26 mmol/L (23-31); Chloride 109 mmol/L (98-107); Estimated GFR 73; Glucose 102 mg/dL (83-110); Potassium 4.2 mmol/L (3.5-5.1); Sodium 146 mmol/L (136-145)
[2024-03-30] MEDS: Dextrose 5 %-0.45 % NaCl 1,000 ML IV SCH (08:24)
[2024-03-30] MEDS: Cefepime 1 GM VIAL ONE (16:30)
[2024-03-31] MEDS: Cefepime 1 GM VIAL ONE (02:46)
[2024-03-31 03:57] LABS: Actual Bicarbonate (HCO3v) 30.2 mEq/L (22-28); Base Excess 5.3 mEq/L (-2.0 to +3.0); Calcium, Ionized (venous) 1.05 mmol/L (1.16-1.32); Chloride (VBG) 103 mmol/L (98-106); Hematocrit-VBG 41 % (36.0-47.0); Hemoglobin (Hb) 13.8 g/dL (11.7-16.1); Potassium (VBG) 4.07 mmol/L (3.70-5.30); Sodium 141 mmol/L (133-146); pH (venous) 7.442 (7.32-7.43)
[2024-03-31 04:30] LABS: #Basophils Less than 0.03 10x3/uL (0.0-0.2); %Basophils 0.1 % (0.0-1.0); %Eosinophils 0.7 % (0.0-10.0); %Neutrophils 66.2 % (42.0-75.0); Hematocrit 42.2 % (36.0-47.0); Hemoglobin 12.5 g/dL (12.0-16.0); Mean Corpuscular HGB CONC 29.6 g/dL (32.0-36.0); Mean Corpuscular Hemoglobin 26.3 pg (27.0-31.0); Mean Corpuscular Volume 88.8 fL (78.0-98.0); Mean Platelet Volume 9.1 fL (7.4-10.4); Platelet Count 390 10x3/uL (130-400); Red Blood Cell (RBC) Count 4.75 mill/uL (4.20-5.40)
[2024-03-31 04:43] LABS: Anion Gap 11 mmol/L (10-20); BUN (Urea Nitrogen) 27 mg/dL (9.8-20.1); Calc. Creatinine Clearance 66 mL/min (70-130); Calcium 8.4 mg/dL (7.8-10.44); Carbon Dioxide 29 mmol/L (23-31); Chloride 105 mmol/L (98-107); Estimated GFR 74; Glucose 260 mg/dL (83-110); Sodium 141 mmol/L (136-145)
[2024-04-01 05:10] LABS: #Basophils Less than 0.03 10x3/uL (0.0-0.2); %Basophils 0.2 % (0.0-1.0); %Eosinophils 1.1 % (0.0-10.0); %Lymphocytes 20.1 % (21.0-51.0); %Monocytes 9.4 % (0.0-10.0); %Neutrophils 68.3 % (42.0-75.0); Hematocrit 40.8 % (36.0-47.0); Hemoglobin 12.1 g/dL (12.0-16.0); Mean Corpuscular HGB CONC 29.7 g/dL (32.0-36.0); Mean Corpuscular Hemoglobin 26.5 pg (27.0-31.0); Mean Corpuscular Volume 89.5 fL (78.0-98.0); Mean Platelet Volume 9.2 fL (7.4-10.4); Platelet Count 382 10x3/uL (130-400); Red Blood Cell (RBC) Count 4.56 mill/uL (4.20-5.40)
[2024-04-01 05:22] LABS: Anion Gap 11 mmol/L (10-20); BUN (Urea Nitrogen) 17 mg/dL (9.8-20.1); Calc. Creatinine Clearance 65 mL/min (70-130); Calcium 8.2 mg/dL (7.8-10.44); Carbon Dioxide 26 mmol/L (23-31); Chloride 106 mmol/L (98-107); Estimated GFR 73; Glucose 236 mg/dL (83-110); Potassium 3.7 mmol/L (3.5-5.1); Sodium 139 mmol/L (136-145)
[2024-04-02 04:35] LABS: #Basophils Less than 0.03 10x3/uL (0.0-0.2); %Basophils 0.1 % (0.0-1.0); %Eosinophils 2.1 % (0.0-10.0); %Lymphocytes 15.3 % (21.0-51.0); %Monocytes 7.9 % (0.0-10.0); %Neutrophils 73.8 % (42.0-75.0); Hemoglobin 11.5 g/dL (12.0-16.0); Mean Corpuscular HGB CONC 30.3 g/dL (32.0-36.0); Mean Corpuscular Volume 89.2 fL (78.0-98.0); Mean Platelet Volume 9.2 fL (7.4-10.4); Platelet Count 413 10x3/uL (130-400); RBC Distribution Width 17.9 % (11.5-14.5); Red Blood Cell (RBC) Count 4.26 mill/uL (4.20-5.40)
[2024-04-02 04:52] LABS: Anion Gap 12 mmol/L (10-20); BUN (Urea Nitrogen) 12 mg/dL (9.8-20.1); Calc. Creatinine Clearance 69 mL/min (70-130); Calcium 8.1 mg/dL (7.8-10.44); Carbon Dioxide 27 mmol/L (23-31); Chloride 103 mmol/L (98-107); Estimated GFR 78; Glucose 179 mg/dL (83-110); Potassium 3.8 mmol/L (3.5-5.1); Sodium 138 mmol/L (136-145)
[2024-04-02 16:08] LABS: CO2 Tension 60.5 mmHg (35.0-45.0)
[2024-04-03 07:47] VITALS: TEMP 97.9
[2024-04-03 12:13] VITALS: BP 107/53
== END 2024-04-03 18:26 | disposition home or self-care (01) | DRG 189 ==
LOC: CCU 11:13 → IMCU/EMU 03-30 11:29
PROVIDERS: ADMIT Internal Medicine; ATTEND Internal Medicine
PROC: 4A033R1 Measurement of Arterial Saturation, Peripheral, Percutaneous Approach (ICD-10-PCS; principal; 2024-03-28)
DX: J96.21 Acute and chronic respiratory failure with hypoxia (principal); J18.9 Pneumonia, unspecified organism; E66.2 Morbid (severe) obesity with alveolar hypoventilation; J96.22 Acute and chronic respiratory failure with hypercapnia; E11.9 Type 2 diabetes mellitus without complications; E78.5 Hyperlipidemia, unspecified; R13.10 Dysphagia, unspecified; I10 Essential (primary) hypertension; Z98.890 Other specified postprocedural states; Z93.0 Tracheostomy status; Z93.1 Gastrostomy status
CPT/HCPCS: 36415; 36416; 36600; 71045; 80048; 80053; 82805; 83036; 83605; 83735; 83880; 85025; 88304; 88305; 94640; 94660; 94760; 94762; C1726; J0171; J0692; J1100; J1650; J1815; J1940; J2272; J2405; J2704; J2919; J3010; J3301; J7030; J7042; J7620; J7999; P9047